=== PATIENT | male | born 1950 | race Caucasian/White ===

== ENCOUNTER → 2021-06-07 14:15 | Outpatient (CLI) | payer MEDICARE, OTHER, SELFPAY ==
--- NOTE | 2021-06-07 | DI.RAD.S_ITS ---
PROCEDURE: XR KNEE LT 3V INDICATIONS: LEFT KNEE PAIN TECHNIQUE: 3 views of the knee were acquired. COMPARISON: None. FINDINGS: Bones: No fracture. Moderate narrowing of the medial joint space. There is also moderate narrowing of the right knee medial joint space. Scattered degenerative subchondral sclerosis and spurring. Mild narrowing of the patellofemoral joint space. Soft tissues: No joint effusion. No suspicious soft tissue calcifications. IMPRESSION: Moderate bilateral knee joint degeneration. Dictated by: Shabbir Sanders M.D. on 06/07/2021 at 16:20 Approved by: Shabbir Sanders M.D. on 06/07/2021 at 16:21
== END ==
PROVIDERS: PCP Internal Medicine; Referring Provider Internal Medicine; Visit Provider Internal Medicine
DX: M25.562 Pain in left knee (principal); M17.0 Bilateral primary osteoarthritis of knee
CPT/HCPCS: 73562

== ENCOUNTER → 2022-03-14 14:44 | Outpatient (CLI) | payer MEDICARE, OTHER, SELFPAY ==
--- NOTE | 2022-03-14 14:46 | DI.US.S_ITS ---
PROCEDURE: US ABDOMEN LIMITED INDICATIONS: Right anterior chest wall mass TECHNIQUE: Real-time focused scanning was performed of the abdomen, with image documentation. COMPARISON: None. FINDINGS: Limited examination of right chest/abdominal wall just lateral to the sternum shows a well-defined homogeneously isoechoic to hyperechoic structure in right chest wall soft tissue measures up to 4 x 4.5 x 1.1 cm in size. No internal vascularity is seen. 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 Clinical and radiographic follow-up is recommended. Dictated by: Zbigniew Victor M.D. on 03/14/2022 at 16:45 Approved by: Zbigniew Victor M.D. on 03/14/2022 at 16:46
== END ==
PROVIDERS: PCP Internal Medicine; Referring Provider Surgery; Visit Provider Surgery
DX: R22.2 Localized swelling, mass and lump, trunk (principal)
CPT/HCPCS: 76705

== ENCOUNTER 2023-05-02 10:20 | Emergency (ER) | payer MEDICARE, OTHER, SELFPAY ==
[2023-05-02 10:22] VITALS: BP 155/78; PULSE 99; RESP 16; TEMP 36.6; O2SAT 97; BMI 30.9
[2023-05-02 11:11] LABS: Add Manual Diff / Slide Review NO; Basophils Absolute Auto 0 /uL (0-100); Basophils Percent Auto 1.2 % (0-2); Eosinophils Absolute Auto 400 /uL (0-450); Eosinophils Percent Auto 9.1 % (2-4); Hematocrit 42.7 % (41-53); Hemoglobin 14.8 g/dL (13.5-17.5); Lymphocytes Absolute Auto 800 /uL (1100-4500); Lymphocytes Percent Auto 20.8 % (25-40); Mean Corpuscular HGB Conc 34.7 % (30-36); Mean Corpuscular Hemoglobin 31.1 PG (26-34); Mean Corpuscular Volume 89.6 fL (80-100); Monocytes Absolute Auto 500 /uL (0-900); Neutrophils Absolute Auto 2200 /uL (1500-7000); Neutrophils Percent Auto 55.9 % (50-75); Platelet Count 237 X10^3/uL (150-400); Red Blood Cell Count 4.77 X10^6/uL (4.5-5.9); Red Cell Distribution Width 12.6 % (11.6-14.8); White Blood Cell Count 3.9 X10^3/uL (4.5-11.0)
--- NOTE | 2023-05-02 11:13 | ED_ITS ---
HPI - Skin/Abscess/Foreign Bdy <Sara Guerra PA-C - Last Filed: 05/02/23 11:56> General Chief complaint: Skin/Abscess/Foreign Body Stated complaint: miltontpjuliet reinoso wants to get stat labs done Time Seen by Provider: 05/02/23 11:10 Source: patient Mode of arrival: Ambulatory Limitations: no limitations History of Present Illness HPI narrative: Patient is a 72-year-old male who is currently under treatment for a shingles outbreak on his back. He completed a course of acyclovir. He has a history of chronic intermittent left knee pain but recently developed more significant left knee pain and edema. Then 2 days ago he developed a petechial-type rash around his left knee and more knee edema. He also complains of pain on the bottom of his left foot. He denies any other sources bleeding and denies any hematuria. He reports a history of easy bruising even though he is not on blood thinners. Overall, he feels fatigued and a little bit lightheaded at times but denies any fever or chills, nausea vomiting, chest pain or other symptoms. Related Data Home Medications Medication Instructions Recorded Confirmed levothyroxine 88 mcg capsule 88 mcg PO DAILY 03/13/22 03/13/22 lisinopril 20 mg tablet 40 mg PO QDAY 03/13/22 meloxicam 15 mg tablet 15 mg PO DAILY PRN 03/13/22 03/13/22 Previous Rx's Medication Instructions Recorded tamsulosin 0.4 mg capsule (Flomax) 0.8 mg (2 x 0.4 mg) PO QDAY #180 10/10/17 caps Allergies Allergy/AdvReac Type Severity Reaction Status Date / Time CRAB Allergy Mild Uncoded 03/13/22 11:01 LATEX Allergy Mild REDNESS/ITC Uncoded 03/13/22 11:01 JEFFRY Review of Systems <Sara Guerra PA-C - Last Filed: 05/02/23 11:56> Review of Systems ROS Unobtainable: All systems reviewed & are unremarkable except as noted in HPI and below Patient History <Sara Guerra PA-C - Last Filed: 05/02/23 11:56> Medical History Hyperlipidemia Hearing deficit Numbness of right hand Shoulder pain (~2013) Gout (~1999) Plantar warts Measles Herpes (~1978) Hepatitis (~1994) Chicken pox Anemia (~2013) Tinnitus Glaucoma Chronic nephritis Kidney disease (~1964) BPH (benign prostatic hyperplasia) Bleeding hemorrhoid GI bleeding Diverticular disease (~2011) Colon polyps (~2011) Colitis (~2011) Low testosterone (~2010) Hypothyroidism (~2013) Surgical History Anesthesia Status post colonoscopy (~2011) Status post hernia repair (~2004) Status post tonsillectomy and adenoidectomy (~1959) Status post laparoscopic cholecystectomy (~2010) Status post arthroscopy Family History Brother Age: 70 Hypothyroidism Rheumatoid arthritis Heart valve problem Brother Age: 60 Hypothyroidism Heart valve problem Father Heart disease Mother Age: 97 Hypothyroidism Mental health problem Leg edema Sister Age: 71 Hypothyroidism Sister Age: 62 Hypothyroidism Social History Smoking Status: Former smoker Smoking Status: Former smoker Exam <Sara Guerra PA-C - Last Filed: 05/02/23 11:56> Narrative Exam Narrative: GENERAL: 72 year old patient appears stated age. Well-developed patient, in no distress. NEURO: AOx3. HEAD: Normocephalic. There is ecchymosis over the left temporal from where he hit his head on a bedside table recently. EYES: Pupils equal round and reactive. Extraocular motions intact. No scleral icterus. No injection or drainage. ENT: Nose without bleeding or purulent drainage. Airway patent. RESPIRATORY: No distress, no increased work of breathing EXTREMITIES: Generalized edema of the left knee without significant erythema or warmth. Petechial rash surrounds the knee but spares the patella. Rash extends approximately 5 cm around the knee. There is no calf tenderness or swelling. Distally, there is minimal edema in his ankle and foot. There is a 2+ DP pulse. There is no visible edema or rash over the sole of the foot. There is tenderness with deep palpation of the sole of the foot. Initial Vital Signs Initial Vital Signs: Vital Signs Temperature 97.9 F 05/02/23 10:22 Pulse Rate 99 H 10/18/23 10:22 Respiratory Rate 16 05/02/23 10:22 Blood Pressure 155/78 H 05/02/23 10:22 Pulse Oximetry 97 05/02/23 10:22 Oxygen Delivery Method Room Air 05/02/23 10:22 <Kai Costa MD - Last Filed: 05/08/23 08:06> Initial Vital Signs Initial Vital Signs: Vital Signs Temperature 97.9 F 05/02/23 10:22 Pulse Rate 99 H 05/02/23 10:22 Respiratory Rate 16 05/02/23 10:22 Blood Pressure 155/78 H 05/02/23 10:22 Pulse Oximetry 97 05/02/23 10:22 Oxygen Delivery Method Room Air 05/02/23 10:22 Course <Sara Guerra PA-C - Last Filed: 05/02/23 11:56> Orders Ordered: ED Orders 05/02/23 11:03 Complete Blood Count AUTO DIFF Stat Comprehensive Metabolic Panel Stat PTT Partial Thromboplastin Mo Stat Prothrombin Time INR Stat 05/02/23 11:46 CRP [C-Reactive Protein Quant] Stat Erythrocyte Sedimentation Rate Stat Vital Signs Vital signs: Vital Signs - 8 hr 05/02/23 10:22 Temperature 97.9 F Pulse Rate 99 H Respiratory Rate 16 Blood Pressure 155/78 H Pulse Oximetry 97 Oxygen Delivery Method Room Air <Kai Costa MD - Last Filed: 05/08/23 08:06> Orders Ordered: ED Orders 05/02/23 11:03 Complete Blood Count AUTO DIFF Stat Comprehensive Metabolic Panel Stat PTT Partial Thromboplastin Mo Stat Prothrombin Time INR Stat 05/02/23 11:46 CRP [C-Reactive Protein Quant] Stat Erythrocyte Sedimentation Rate Stat Vital Signs Vital signs: Vital Signs - 8 hr 05/02/23 10:22 Temperature 97.9 F Pulse Rate 99 H Respiratory Rate 16 Blood Pressure 155/78 H Pulse Oximetry 97 Oxygen Delivery Method Room Air MDM - Skin/Abscess/Foreign Bdy <Sara Guerra PA-C - Last Filed: 05/02/23 11:56> Lab Data 05/02/23 11:03 05/02/23 11:03 Labs: Lab Results 05/02/23 Range/Units 11:03 WBC 3.9 L (4.5-11.0) X10^3/uL RBC 4.77 (4.5-5.9) X10^6/uL Hgb 14.8 (13.5-17.5) g/dL Hct 42.7 (41-53) % MCV 89.6 (80-100) fL MCH 31.1 (26-34) PG MCHC 34.7 (30-36) % RDW 12.6 (11.6-14.8) % Plt Count 237 (150-400) X10^3/uL Neut % (Auto) 55.9 (50-75) % Lymph % (Auto) 20.8 L (25-40) % [place] % (Auto) 13.0 (3-14) % Eos % (Auto) 9.1 H (2-4) % Baso % (Auto) 1.2 (0-2) % Neut # (Auto) 2200 (5664-8787) /uL Lymph # (Auto) 800 L (8894-9520) /uL [place] # (Auto) 500 (0-900) /uL Eos # (Auto) 400 (0-450) /uL Baso # (Auto) 0 (0-100) /uL ESR 46 H (0-15) MM/HR PT 11.8 (10.1-12.7) SECONDS INR 1.0 (0.9-1.3) APTT 47 H (26-36) SECONDS Sodium 139 (137-145) mmol/L Potassium 4.1 (3.4-5.1) mmol/L Chloride 104 (98-107) mmol/L Carbon Dioxide 24 (22-32) mmol/L BUN 19 (9-20) mg/dL Creatinine 1.17 (0.66-1.25) mg/dL Estimated GFR > 60 (>60) mL/min BUN/Creatinine Ratio 16.2 (6-22) Glucose 112 H (80-110) mg/dL Uric Acid 8.6 H (3.5-8.5) mg/dL Calcium 9.6 (8.4-10.2) mg/dL Total Bilirubin 0.6 (0.2-1.3) mg/dL AST 21 (17-59) IU/L ALT 19 (<50) IU/L Alkaline Phosphatase 62 (38-126) U/L C-Reactive Protein 2.0 H (<1.0) mg/dL Total Protein 7.6 (6.3-8.2) g/dL Albumin 4.4 (3.5-5.0) g/dL Globulin 3.2 (1.7-4.1) g/dL Albumin/Globulin Ratio 1.4 (1.0-2.8) MDM Narrative Medical decision making narrative: Multiple etiologies for patient's symptoms considered including, but not limited to: Gout, immune thrombocytopenia, thrombotic thrombocytopenic purpura, side effect of acyclovir, septic joint, autoimmune disease such as rheumatoid arthritis or lupus. The etiology of the left knee swelling and rash is unclear today. Labs overall are very reassuring with normal platelets, no increased white blood cell count which would lead us towards infection, and no new anemia. In review of his chart, I noticed that he previously had a positive LAURI test, which means that it is more likely that he may have an autoimmune disease, and I wonder if this could be autoimmune related. He also has a history of gout, and the knee pain and swelling could be related to gout, although gout does not usually have a rash like this. I will add on inflammatory marker labs and he will follow up later today with his primary care, Sandrine Nunez, and get her opinion. I do not think it is necessary to tap the knee today as I do not think it will change treatment. I would suggest a period of watchful waiting, and see if this gets better or worse. There is no indication that there is an emergent condition that requires treatment at this time. I would not start additional medications at this time in order to not muddy the dewitt. Patient's symptoms improved over duration of stay with above-stated therapies. Findings and discharge diagnosis discussed with patient/family followed by verbalization of understanding Return precautions discussed with patient/family whom verbalize understanding of diagnosis and plan <Kai Costa MD - Last Filed: 05/08/23 08:06> Lab Data Labs: Lab Results 05/02/23 Range/Units 11:03 WBC 3.9 L (4.5-11.0) X10^3/uL RBC 4.77 (4.5-5.9) X10^6/uL Hgb 14.8 (13.5-17.5) g/dL Hct 42.7 (41-53) % MCV 89.6 (80-100) fL MCH 31.1 (26-34) PG MCHC 34.7 (30-36) % RDW 12.6 (11.6-14.8) % Plt Count 237 (150-400) X10^3/uL Neut % (Auto) 55.9 (50-75) % Lymph % (Auto) 20.8 L (25-40) % [place] % (Auto) 13.0 (3-14) % Eos % (Auto) 9.1 H (2-4) % Baso % (Auto) 1.2 (0-2) % Neut # (Auto) 2200 (6884-1562) /uL Lymph # (Auto) 800 L (1716-3614) /uL [place] # (Auto) 500 (0-900) /uL Eos # (Auto) 400 (0-450) /uL Baso # (Auto) 0 (0-100) /uL ESR 46 H (0-15) MM/HR PT 11.8 (10.1-12.7) SECONDS INR 1.0 (0.9-1.3) APTT 47 H (26-36) SECONDS Sodium 139 (137-145) mmol/L Potassium 4.1 (3.4-5.1) mmol/L Chloride 104 (98-107) mmol/L Carbon Dioxide 24 (22-32) mmol/L BUN 19 (9-20) mg/dL Creatinine 1.17 (0.66-1.25) mg/dL Estimated GFR > 60 (>60) mL/min BUN/Creatinine Ratio 16.2 (6-22) Glucose 112 H (80-110) mg/dL Uric Acid 8.6 H (3.5-8.5) mg/dL Calcium 9.6 (8.4-10.2) mg/dL Total Bilirubin 0.6 (0.2-1.3) mg/dL AST 21 (17-59) IU/L ALT 19 (<50) IU/L Alkaline Phosphatase 62 (38-126) U/L C-Reactive Protein 2.0 H (<1.0) mg/dL Total Protein 7.6 (6.3-8.2) g/dL Albumin 4.4 (3.5-5.0) g/dL Globulin 3.2 (1.7-4.1) g/dL Albumin/Globulin Ratio 1.4 (1.0-2.8) Discharge Plan Departure Patient Disposition: Home Clinical Impression: Effusion of knee joint, left, Petechial rash Instructions: DI for Knee Effusion Activity Restrictions/Additional Instructions: *As we discussed, it is not entirely clear what the swelling in your left knee and the rash is from today. Your labs overall are very reassuring with normal platelets, no increased white blood cell count which would lead us towards infection, and no new anemia. In review of her chart, I noticed that you previously had a positive LAURI test, which means that it is more likely that you have an autoimmune disease, and I wonder if this could be autoimmune related. You also have a history of gout, and the knee pain and swelling could be related to gout, although gout does not usually have a rash like this. I will inflammatory marker labs on and you will follow up later today with your primary care, Sandrine Nunez, and get her opinion. I do not think it is necessary to get fluid out of your knee today as I do not think it will change treatment. I would suggest a period of watchful waiting, and see if this gets better or worse. There is no indication that there is a widespread destruction of blood cells or clotting disorder in your body right now. You have completed your course of antiviral medicine for the shingles and I would not start any new medications right now. *What to do: *Please continue to take your regular medications as directed. [ ] New medication prescriptions sent to your pharmacy: [ ] [ ] New medication written as a paper prescription [x] No new medications given *Please follow up with your primary care provider in 2-3 days, call for an appointment. Let them know you were seen in the Emergency Department and that we ask that you be seen in follow up. We will electronically transmit a record of today's note if your PCP is in our system *If you do not have a primary care provider please contact the [facility] Resource line at [phone]. They will ask some questions about your medical history and help get you set up with a doctor in the community. *Return to Emergency Department if you should have any new, worsening or concerning symptoms, such as [fever greater than 101 F, shaking chills, worsening pain, persistent vomiting or other concerning symptoms]. Prescriptions: No Action tamsulosin [Flomax] 0.4 MG capsule,extended release 24hr 0.8 mg PO QDAY Qty: 180 3RF lisinopril 20 mg tablet 40 mg PO QDAY meloxicam 15 mg tablet 15 mg PO DAILY PRN levothyroxine 88 mcg capsule 88 mcg PO DAILY Referrals: Sandrine Nunez ARNP [Primary Care Provider] - Stand Alone Forms: Patient Portal/API ED Sign-out <Kai Costa MD - Last Filed: 05/08/23 08:06> Cosign ED Attending Cosignature Attestation: I was immediately available in the department for consultation. ?This documentation has been reviewed and I agree with assessment and plan. Supervised by Kai Costa MD
[2023-05-02 11:16] LABS: Prothrombin Time 11.8 SECONDS (10.1-12.7)
[2023-05-02 11:19] LABS: PTT Partial Thromboplastin Tim 47 SECONDS (26-36)
[2023-05-02 11:23] LABS: Alanine Aminotransferase 19 IU/L (<50); Albumin 4.4 g/dL (3.5-5.0); Albumin Globulin Ratio 1.4 (1.0-2.8); Alkaline Phosphatase 62 U/L (38-126); Aspartate Aminotransferase 21 IU/L (17-59); BUN Creatinine Ratio 16.2 (6-22); Bilirubin Total 0.6 mg/dL (0.2-1.3); Blood Urea Nitrogen 19 mg/dL (9-20); Calcium 9.6 mg/dL (8.4-10.2); Carbon Dioxide 24 mmol/L (22-32); Chloride 104 mmol/L (98-107); Estimated Glomerular Filt Rate > 60 mL/min (>60); Globulin 3.2 g/dL (1.7-4.1); Glucose 112 mg/dL (80-110); HEMOLYSIS < 15 (0-50); Potassium 4.1 mmol/L (3.4-5.1); Sodium 139 mmol/L (137-145); Total Protein 7.6 g/dL (6.3-8.2)
[2023-05-02 12:03] VITALS: BP 150/74; PULSE 94; RESP 16; O2SAT 99
[2023-05-02 12:19] LABS: Erythrocyte Sedimentation Rate 46 MM/HR (0-15)
[2023-05-02 17:20] LABS: Uric Acid 8.6 mg/dL (3.5-8.5)
== END 2023-05-02 12:03 | disposition home or self-care (01) ==
PROVIDERS: Emergency Medicine; Emergency Provider Physician Assistant; PCP Internal Medicine
DX: M25.462 Effusion, left knee (principal); R23.3 Spontaneous ecchymoses
CPT/HCPCS: 36415; 80053; 84550; 85025; 85610; 85651; 85730; 86140; 99283

== ENCOUNTER 2023-05-18 09:51 | Emergency (ER) | payer MEDICARE, OTHER, SELFPAY ==
[2023-05-18 10:01] VITALS: BP 155/67; PULSE 90; RESP 16; O2SAT 98; BMI 30.2
--- NOTE | 2023-05-18 10:23 | ED_ITS ---
HPI - Recheck/Abnormal Lab/Rx General Chief Complaint: Recheck/Abnormal Lab/Rx Stated Complaint: sent by PCP low blood count Time Seen by Provider: 05/18/23 10:13 Source: patient Mode of arrival: Ambulatory History of Present Illness HPI narrative: Patient 72-year-old male history of hypothyroid gout, hypertension presenting today at request of PCP. He apparently was diagnosed with shingles on his right abdomen a couple weeks ago he was appropriately treated he reports that that has healed. On May 02 he had a left knee swelling was diagnosed with gout. He has had declining WBC count. Apparently had outpatient blood work done and showed a white blood cell count of 1.9. He denies any fever. No night sweats no weight loss no fatigue. Denies any chest pain cough abdominal pain nausea or vomiting. Overall feels like things are getting better. Related Data Home Medications Medication Instructions Recorded Confirmed levothyroxine 88 mcg capsule 88 mcg PO DAILY 03/13/22 05/18/23 lisinopril 20 mg tablet 40 mg PO QDAY 03/13/22 05/18/23 indomethacin 50 mg capsule 50 mg PO Q8H PRN Gout 05/18/23 05/18/23 Previous Rx's Medication Instructions Recorded tamsulosin 0.4 mg capsule (Flomax) 0.8 mg (2 x 0.4 mg) PO QDAY #180 10/10/17 caps Allergies Allergy/AdvReac Type Severity Reaction Status Date / Time CRAB Allergy Intermediate Vomiting Uncoded 05/18/23 10:09 LATEX Allergy Mild REDNESS/ITC Uncoded 05/18/23 10:09 JEFFRY Review of Systems Review of Systems ROS Unobtainable: All systems reviewed & are unremarkable except as noted in HPI and below Patient History Medical History Hyperlipidemia Hearing deficit Numbness of right hand Shoulder pain (~2013) Gout (~1999) Plantar warts Measles Herpes (~1978) Hepatitis (~1994) Chicken pox Anemia (~2013) Tinnitus Glaucoma Chronic nephritis Kidney disease (~1964) BPH (benign prostatic hyperplasia) Bleeding hemorrhoid GI bleeding Diverticular disease (~2011) Colon polyps (~2011) Colitis (~2011) Low testosterone (~2010) Hypothyroidism (~2013) Surgical History Anesthesia Status post colonoscopy (~2011) Status post hernia repair (~2004) Status post tonsillectomy and adenoidectomy (~1959) Status post laparoscopic cholecystectomy (~2010) Status post arthroscopy Family History Brother Age: 70 Hypothyroidism Rheumatoid arthritis Heart valve problem Brother Age: 60 Hypothyroidism Heart valve problem Father Heart disease Mother Age: 97 Hypothyroidism Mental health problem Leg edema Sister Age: 71 Hypothyroidism Sister Age: 62 Hypothyroidism Social History Smoking Status: Former smoker Smoking Status: Former smoker tobacco type: cigarettes alcohol intake frequency: 3 or more drinks per day Alcohol type: hard liquor Substance Use Type: does not use Exam Initial Vital Signs Initial Vital Signs: Vital Signs Pulse Rate 90 05/18/23 10:01 Respiratory Rate 16 05/18/23 10:01 Blood Pressure 155/67 H 05/18/23 10:01 Pulse Oximetry 98 05/18/23 10:01 Oxygen Delivery Method Room Air 05/18/23 10:01 GENERAL: Alert 72-year-old male and in no acute distress. HEENT: Head atraumatic,EOMI, pupils reactive, face symmetric, moist mucous membranes CARDIOVASCULAR: Regular rate and rhythm without murmurs, rubs or gallops. RESPIRATORY: Breath sounds equal bilaterally, no wheezes rales or rhonchi. ABDOMEN: Soft, nontender. Normoactive bowel sounds all 4 quadrants. No guarding or rebound. EXTREMITIES: Normal range of motion, no clubbing or edema. Neurovascularly intact Left lower leg no knee effusion no rash NEUROLOGICAL: Alert and oriented x4. SKIN: Warm, dry, no laceration, no petechiae, no rashes or lesions. Healed herpetic lesions on right abdominal wall Course Orders Ordered: ED Orders 05/18/23 10:20 CBC Auto Diff [Complete Blood Count AUTO DIFF] Stat CMP [Comprehensive Metabolic Panel] Stat TSH [Thyroid Stimulating Hormone] Stat Vital Signs Vital signs: Vital Signs - 8 hr 05/18/23 10:01 Pulse Rate 90 Respiratory Rate 16 Blood Pressure 155/67 H Pulse Oximetry 98 Oxygen Delivery Method Room Air MDM - Recheck/Abnormal Lab/Rx Lab Data 05/18/23 10:20 05/18/23 10:20 Labs: Lab Results 05/18/23 Range/Units 10:20 WBC 2.3 L (4.5-11.0) X10^3/uL RBC 4.27 L (4.5-5.9) X10^6/uL Hgb 13.4 L (13.5-17.5) g/dL Hct 38.3 L (41-53) % MCV 89.7 (80-100) fL MCH 31.2 (26-34) PG MCHC 34.8 (30-36) % RDW 12.8 (11.6-14.8) % Plt Count 184 (150-400) X10^3/uL Neut % (Auto) 35.4 L (50-75) % Lymph % (Auto) 34.3 (25-40) % [place] % (Auto) 15.5 H (3-14) % Eos % (Auto) 11.6 H (2-4) % Baso % (Auto) 3.2 H (0-2) % Neut # (Auto) 800 L (7206-3201) /uL Lymph # (Auto) 800 L (1570-3509) /uL [place] # (Auto) 400 (0-900) /uL Eos # (Auto) 300 (0-450) /uL Baso # (Auto) 100 (0-100) /uL Sodium 139 (137-145) mmol/L Potassium 4.1 (3.4-5.1) mmol/L Chloride 107 (98-107) mmol/L Carbon Dioxide 25 (22-32) mmol/L BUN 16 (9-20) mg/dL Creatinine 1.05 (0.66-1.25) mg/dL Estimated GFR > 60 (>60) mL/min BUN/Creatinine Ratio 15.2 (6-22) Glucose 108 (80-110) mg/dL Calcium 9.0 (8.4-10.2) mg/dL Total Bilirubin 0.6 (0.2-1.3) mg/dL AST 17 (17-59) IU/L ALT 17 (<50) IU/L Alkaline Phosphatase 65 (38-126) U/L Total Protein 6.5 (6.3-8.2) g/dL Albumin 3.7 (3.5-5.0) g/dL Globulin 2.8 (1.7-4.1) g/dL Albumin/Globulin Ratio 1.3 (1.0-2.8) TSH 2.75 (0.47-4.68) uIU/mL MDM Narrative Medical decision making narrative: Patient 72-year-old male presents today requesting provider for abnormal blood work. Concern for WBC count outpatient at 1. I have not confirmed this. However blood work today shows an improvement with WBC 2.3 not anemic. Electrolytes are stable. He is afebrile known neutropenia. He overall appears very well and stable completely asymptomatic. He was on valacyclovir for shingles which can cause decreased neutrophils which may or may not be related to his abnormal blood work however it is improving and he is completely asymptomatic. Met this time I see no need for any further ED evaluation and recommend continuing following as an outpatient with heme/Onc referral if needed Discharge Plan Departure Patient Disposition: Home Clinical Impression: Leukopenia Instructions: White Blood Cell Count, With Differential Activity Restrictions/Additional Instructions: *You have been diagnosed with low WBC *What to do: At this time your WBC count is rising. It may be from a variety of things. Please have your PCP monitor it *Continue to take medications as directed *Follow up with your primary care provider in 2-3 days or call [phone] *Return to ER if you should have chest pain weakness shortness of breath fever >100.4 or any new, worsening or concerning symptoms Prescriptions: No Action tamsulosin [Flomax] 0.4 MG capsule,extended release 24hr 0.8 mg PO QDAY Qty: 180 3RF lisinopril 20 mg tablet 40 mg PO QDAY levothyroxine 88 mcg capsule 88 mcg PO DAILY indomethacin 50 mg capsule 50 mg PO Q8H PRN (Reason: Gout) Referrals: Sandrine Nunez ARNP [Primary Care Provider] - Stand Alone Forms: Patient Portal/API
[2023-05-18 10:26] VITALS: BP 116/76; PULSE 81; RESP 21; O2SAT 96
[2023-05-18 10:35] LABS: Add Manual Diff / Slide Review NO; Basophils Absolute Auto 100 /uL (0-100); Basophils Percent Auto 3.2 % (0-2); Eosinophils Absolute Auto 300 /uL (0-450); Eosinophils Percent Auto 11.6 % (2-4); Hematocrit 38.3 % (41-53); Hemoglobin 13.4 g/dL (13.5-17.5); Lymphocytes Absolute Auto 800 /uL (1100-4500); Lymphocytes Percent Auto 34.3 % (25-40); Mean Corpuscular HGB Conc 34.8 % (30-36); Mean Corpuscular Hemoglobin 31.2 PG (26-34); Mean Corpuscular Volume 89.7 fL (80-100); Monocytes Absolute Auto 400 /uL (0-900); Monocytes Percent Auto 15.5 % (3-14); Neutrophils Absolute Auto 800 /uL (1500-7000); Neutrophils Percent Auto 35.4 % (50-75); Platelet Count 184 X10^3/uL (150-400); Red Blood Cell Count 4.27 X10^6/uL (4.5-5.9); Red Cell Distribution Width 12.8 % (11.6-14.8); White Blood Cell Count 2.3 X10^3/uL (4.5-11.0)
[2023-05-18 10:46] LABS: Alanine Aminotransferase 17 IU/L (<50); Albumin 3.7 g/dL (3.5-5.0); Albumin Globulin Ratio 1.3 (1.0-2.8); Alkaline Phosphatase 65 U/L (38-126); Aspartate Aminotransferase 17 IU/L (17-59); BUN Creatinine Ratio 15.2 (6-22); Bilirubin Total 0.6 mg/dL (0.2-1.3); Blood Urea Nitrogen 16 mg/dL (9-20); Carbon Dioxide 25 mmol/L (22-32); Chloride 107 mmol/L (98-107); Estimated Glomerular Filt Rate > 60 mL/min (>60); Globulin 2.8 g/dL (1.7-4.1); Glucose 108 mg/dL (80-110); HEMOLYSIS < 15 (0-50); Potassium 4.1 mmol/L (3.4-5.1); Sodium 139 mmol/L (137-145); Total Protein 6.5 g/dL (6.3-8.2)
[2023-05-18 11:21] LABS: Thyroid Stimulating Hormone 2.75 uIU/mL (0.47-4.68)
== END 2023-05-18 11:10 | disposition home or self-care (01) ==
PROVIDERS: Emergency Provider Emergency Medicine; PCP Internal Medicine
DX: D72.819 Decreased white blood cell count, unspecified (principal); R07.9 Chest pain, unspecified
CPT/HCPCS: 36415; 80053; 84443; 85025; 93005; 99283; 99284

== ENCOUNTER → 2023-08-24 09:30 | Outpatient (CLI) | payer MEDICARE, OTHER, SELFPAY ==
--- NOTE | 2023-08-24 09:32 | DI.MG.S_ITS ---
MALE BILATERAL DIGITAL DIAGNOSTIC MAMMOGRAM 3D/2D: 08/24/2023 CLINICAL: Right breast lump. No prior exams were available for comparison. No significant masses, calcifications, or other findings are seen in either breast. IMPRESSION: INCOMPLETE: NEEDS ADDITIONAL IMAGING EVALUATION There is no abnormality seen in the right breast to correspond with the area of clinical concern in the lower inner quadrant, however, ultrasound is recommended. This exam was interpreted at Station ID: [id number]. NOTE: For mammograms, a report in lay terms will be sent to the patient. Approximately 15% of breast malignancies will not be visualized mammographically. In the management of a palpable breast mass, a negative mammogram must not discourage biopsy of a clinically suspicious lesion. Electronically Signed By: Ismael Huizar M.D. lc/:08/24/2023 10:36:43 ACR BI-RADS Category 0: Incomplete 3340F
--- NOTE | 2023-08-24 09:32 | DI.US.S_ITS ---
PROCEDURE: US BREAST RT LIMITED COMPARISON: None. INDICATIONS: Unspecified lump in the right breast, lower inner FINDINGS: IMPRESSION: Dictated by: Ismael Huizar M.D. on 08/24/2023 at 10:37 Approved by: Ismael Huizar M.D. on 08/24/2023 at 10:38
--- NOTE | 2023-08-24 10:19 | DI.US.S_ITS ---
Patient Name: VILLA AUGUSTINE date: 1950 Sex: M Attending Physician: Paola Indications: Date: 08/24/2023 10:38 At the request of: STACEY NORTON Procedure: US breast RT limited ULTRASOUND OF RIGHT BREAST: 08/24/2023 CLINICAL: Palpable right breast lump. Comparison is made to exam dated: 08/24/2023 mammogram - [facility]. Color flow and real-time ultrasound of the right breast were performed. Silveira scale images of the realtime examination were reviewed. There is a benign 4 cm x 5 cm x 1 cm oval mass in the right breast at 3 o'clock anterior depth 9 cm from the nipple. This oval mass is hyperechoic. IMPRESSION: BENIGN There is no sonographic evidence of malignancy. The 4 cm x 5 cm x 1 cm oval mass in the right breast resembles a lipoma and is presumed benign based on imaging. However, clinical followup and evaluation are recommended. If this is felt to be clinically new or enlarging, consider surgical excision. Radiology could also sample this using needle biopsy. This exam was interpreted at Station ID: [id number]. Electronically Signed By: Ismael Huizar M.D. lc/:08/24/2023 10:38:37 letter sent: Clinical Evaluation Continued Report - Page 2 of 2 Patient Name: VILLA AUGUSTINE date: 1950 Sex: M Attending Physician: Paola Indications: Date: 08/24/2023 10:38 At the request of: STACEY NORTON Procedure: US breast RT limited Ultrasound BI-RADS: 2 Benign
== END ==
LOC: MAMMO 09:31
PROVIDERS: PCP Internal Medicine; Referring Provider Internal Medicine Hematology & Oncology; Visit Provider Internal Medicine Hematology & Oncology
DX: R92.2 Inconclusive mammogram (principal); N63.14 Unspecified lump in the right breast, lower inner quadrant
CPT/HCPCS: 76642; 77066; G0279

== ENCOUNTER → 2023-10-03 12:46 | Outpatient (CLI) | payer MEDICARE, OTHER, SELFPAY ==
--- NOTE | 2023-10-03 12:48 | DI.RAD.S_ITS ---
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 COMPARISON: [facility], CR, XR FOOT LT MIN 3V, 10/03/2023, 12:53. FINDINGS: Bones: No fractures or dislocations. 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 Soft tissues: No radiographically evident soft tissue swelling. 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 on 10/03/2023 at 16:31 Approved by: Robert Story M.D. on 10/03/2023 at 16:36
--- NOTE | 2023-10-03 12:48 | DI.RAD.S_ITS ---
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 COMPARISON: [facility], CR, XR FOOT RT MIN 3V, 10/03/2023, 12:53. FINDINGS: Bones: No fractures or dislocations. 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 DJD of the distal interphalangeal joints of the 2nd , 3rd digits . Ill-defined erosions throughout the bones of the phalanges. Soft tissues: No radiographically evident soft tissue swelling. IMPRESSION: DJD of the left foot as noted above Ill-defined erosions throughout the bones of the phalanges. Dictated by: Robert Story M.D. on 10/03/2023 at 16:36 Approved by: Robert Story M.D. on 10/03/2023 at 16:39
== END ==
PROVIDERS: PCP Internal Medicine; Referring Provider Internal Medicine; Visit Provider Internal Medicine
DX: M10.9 Gout, unspecified (principal); M19.072 Primary osteoarthritis, left ankle and foot; M19.071 Primary osteoarthritis, right ankle and foot
CPT/HCPCS: 73630

== ENCOUNTER → 2024-03-10 14:47 | Outpatient (CLI) | payer MEDICARE, OTHER, SELFPAY ==
--- NOTE | 2024-03-10 14:51 | DI.RAD.S_ITS ---
PROCEDURE: XR KNEE RT 3V INDICATIONS: CHRONIC RIGHT KNEE PAIN TECHNIQUE: 3 views of the knee were acquired. COMPARISON: [facility], CR, XR KNEE LT 3V, 06/07/2021, 14:16. FINDINGS: Mild tricompartmental osteoarthritis the right knee, slightly progressed from prior exam. No right knee effusion. Distal quadriceps enthesophyte. Multiple small ossification posterior to the tibial plateau, likely representing intra-articular bodies. No acute fracture or dislocation. IMPRESSION: No acute bony abnormality or significant effusion. Dictated by: Lesa Serrato M.D. on 03/10/2024 at 17:44 Approved by: Lesa Serrato M.D. on 03/10/2024 at 17:46
--- NOTE | 2024-03-10 14:51 | DI.RAD.S_ITS ---
PROCEDURE: XR HIP W PEL IF DONE RT 2V INDICATIONS: RIGHT HIP PAIN TECHNIQUE: 2 views of the hip were acquired. COMPARISON: None. FINDINGS: Moderate degenerative changes of the right hip. Mild degenerative change of the left hip. No acute fracture or dislocation of the right hip. IMPRESSION: No acute bony abnormality. Dictated by: Lesa Serrato M.D. on 03/10/2024 at 17:43 Approved by: Lesa Serrato M.D. on 03/10/2024 at 17:44
== END ==
LOC: RAD 14:50
PROVIDERS: PCP Internal Medicine; Referring Provider Internal Medicine; Visit Provider Internal Medicine
DX: M17.11 Unilateral primary osteoarthritis, right knee (principal); M25.561 Pain in right knee; G89.29 Other chronic pain; M25.551 Pain in right hip
CPT/HCPCS: 73502; 73562

== ENCOUNTER → 2024-08-19 14:29 | Outpatient (CLI) | payer MEDICARE, OTHER, SELFPAY ==
[2024-08-19 14:58] LABS: Add Manual Diff / Slide Review NO; Basophils Absolute Auto 0 /uL (0-100); Basophils Percent Auto 1.3 % (0-2); Eosinophils Absolute Auto 200 /uL (0-450); Eosinophils Percent Auto 7.1 % (2-4); Hematocrit 43.3 % (41-53); Hemoglobin 14.8 g/dL (13.5-17.5); Lymphocytes Absolute Auto 800 /uL (1100-4500); Mean Corpuscular HGB Conc 34.1 % (30-36); Mean Corpuscular Hemoglobin 31.1 PG (26-34); Mean Corpuscular Volume 91.1 fL (80-100); Monocytes Absolute Auto 500 /uL (0-900); Monocytes Percent Auto 16.2 % (3-14); Neutrophils Absolute Auto 1300 /uL (1500-7000); Neutrophils Percent Auto 46.4 % (50-75); Platelet Count 167 X10^3/uL (150-400); Red Blood Cell Count 4.76 X10^6/uL (4.5-5.9); Red Cell Distribution Width 13.9 % (11.6-14.8); White Blood Cell Count 2.9 X10^3/uL (4.5-11.0)
[2024-08-19 15:40] LABS: Alanine Aminotransferase 17 IU/L (<50); Albumin 4.2 g/dL (3.5-5.0); Albumin Globulin Ratio 1.6 (1.0-2.8); Alkaline Phosphatase 66 U/L (38-126); Aspartate Aminotransferase 24 IU/L (17-59); BUN Creatinine Ratio 20.3 (6-22); Bilirubin Total 0.6 mg/dL (0.2-1.3); Blood Urea Nitrogen 27 mg/dL (9-20); Calcium 9.3 mg/dL (8.4-10.2); Carbon Dioxide 26 mmol/L (22-32); Chloride 104 mmol/L (98-107); Estimated Glomerular Filt Rate 55 mL/min (>60); Globulin 2.6 g/dL (1.7-4.1); Glucose 119 mg/dL (80-110); HEMOLYSIS < 15 (0-50); Potassium 4.2 mmol/L (3.4-5.1); Sodium 138 mmol/L (137-145); Total Protein 6.8 g/dL (6.3-8.2); Uric Acid 4.6 mg/dL (3.5-8.5)
== END ==
PROVIDERS: PCP Internal Medicine; Referring Provider Internal Medicine Rheumatology; Visit Provider Internal Medicine Rheumatology
DX: M10.9 Gout, unspecified (principal)
CPT/HCPCS: 36415; 80053; 84550; 85025

== ENCOUNTER → 2025-04-09 09:58 | Outpatient (CLI) | payer MEDICARE, OTHER, SELFPAY ==
[2025-04-09 10:50] LABS: Add Manual Diff / Slide Review NO; Hematocrit 40.9 % (41-53); Hemoglobin 13.6 g/dL (13.5-17.5); Lymphocytes Absolute Auto 600 /uL (1100-4500); Mean Corpuscular HGB Conc 33.2 % (30-36); Mean Corpuscular Hemoglobin 29.3 PG (26-34); Mean Corpuscular Volume 88.3 fL (80-100); Platelet Count 109 X10^3/uL (150-400)
== END ==
PROVIDERS: PCP Family Medicine
DX: D69.6 Thrombocytopenia, unspecified (principal)
CPT/HCPCS: 36415; 85025

== ENCOUNTER → 2025-07-02 11:39 | Outpatient (CLI) | payer MEDICARE, OTHER, SELFPAY ==
[2025-07-02 12:23] LABS: Add Manual Diff / Slide Review NO; Hematocrit 36.8 % (41-53); Hemoglobin 12.1 g/dL (13.5-17.5); Lymphocytes Absolute Auto 800 /uL (1100-4500); Mean Corpuscular HGB Conc 33.0 % (30-36); Mean Corpuscular Hemoglobin 28.4 PG (26-34); Mean Corpuscular Volume 86.2 fL (80-100); Platelet Count 246 X10^3/uL (150-400)
== END ==
PROVIDERS: PCP Family Medicine
DX: D69.3 Immune thrombocytopenic purpura (principal)
CPT/HCPCS: 36415; 85025

== ENCOUNTER → 2025-07-07 08:25 | Outpatient (CLI) | payer MEDICARE, OTHER, SELFPAY ==
[2025-07-07 10:03] LABS: Alanine Aminotransferase 13 IU/L (<50); Albumin 3.9 g/dL (3.5-5.0); Albumin Globulin Ratio 1.4 (1.0-2.8); Alkaline Phosphatase 81 U/L (38-126); Blood Urea Nitrogen 17 mg/dL (9-20); Calcium 9.1 mg/dL (8.4-10.2); Carbon Dioxide 26 mmol/L (22-32); Chloride 104 mmol/L (98-107); Estimated Glomerular Filt Rate > 60 mL/min (>60); Globulin 2.7 g/dL (1.7-4.1); Glucose 103 mg/dL (70-99); HEMOLYSIS < 15 (0-50); Potassium 4.2 mmol/L (3.4-5.1); Sodium 141 mmol/L (137-145); Total Protein 6.6 g/dL (6.3-8.2)
== END ==
PROVIDERS: PCP Family Medicine
DX: D69.3 Immune thrombocytopenic purpura (principal)
CPT/HCPCS: 36415; 80053